=== PATIENT | male | born 1970 | race Hispanic/Latino ===

== ENCOUNTER 2021-01-18 12:30 | Emergency (ER) | payer OTHER ==
[~2021-01-18] VITALS: Ht 185.4 cm; Wt 87.1 kg
[2021-01-18 12:32] VITALS: BP 127/63
== END 2021-01-18 14:48 | disposition left against medical advice (07) ==
LOC: EDH 12:30
DX: R53.1 Weakness (principal); Z53.21 Procedure and treatment not carried out due to patient leaving prior to being seen by health care provider